=== PATIENT | male | born 1995 | race Caucasian/White ===

== ENCOUNTER 2021-12-12 17:25 | Emergency (ER) | payer SELFPAY ==
[~2021-12-12] VITALS: Ht 170 cm; Wt 74.0 kg
--- NOTE | 2021-12-12 17:43 | ED General ---
General Chief Complaint: General Problems/Pain Stated Complaint: TINGLING ALL OVER BODY Source of Information: Patient History of Present Illness Date Seen by Provider: Dec 12, 2021 Time Seen by Provider: 17:39 Initial Comments 26-year-old male presenting with complaints of feeling like he was tingling all over his body. He states he woke up feeling that way in her head progress throughout the day. He has been under extra stress in the last few weeks as he has been undergoing a custody cabrera with his ex over their son. He also has not been sleeping more than a hour to a few hours each night. He only eats about once a day and has had little to no appetite. He thought that he was tired today so he did drink 5 cups of coffee with caffeine. He started feeling like his face was going numb at work and had to leave early. They had gone to [place] to be seen but he states that he waited for 40 minutes and they had not called him to the room so he left and they drove here. He has had some increased nasal congestion and nosebleeds but thought that it was related to his work. He works with paper and gets dried out. He denies having any fever, chills, change in vision, chest pain, nausea, vomiting, pain with urination, diarrhea. He did have a coworker that was positive for Covid but was not in close contact with that individual other than they walk by where he works. Timing/Duration: 12-24 Hours Severity: Moderate Associated Systoms: No Chest Pain, No Cough, No Diaphoresis, No Fever/Chills, No Headaches; Loss of Appetite, Malaise; No Nausea/Vomiting, No Rash, No Seizure, No Shortness of Air, No Syncope, No Weakness Allergies and Home Medications Allergies Coded Allergies: No Known Drug Allergies (Unverified , 12/12/21) Patient Home Medication List Home Medication List Reviewed: Yes Review of Systems Review of Systems Constitutional: No chills, No fever; malaise EENTM: epistaxis, nose congestion; No blurred vision Respiratory: No cough, No short of breath Cardiovascular: No chest pain Gastrointestinal: No nausea, No vomiting Genitourinary: No dysuria Musculoskeletal: No muscle pain Skin: No rash Psychiatric/Neurological: Emotional Problems (stress with custody cabrera with his ex, insomnia); Denies Headache Hematologic/Lymphatic: Denies Anemia, Denies Blood Clots Past [id number]-[id number] Hx Patient Social History Substance use?: Yes Substance type: Marijuana Alcohol Use?: Yes Past Medical History Surgeries: No Respiratory: No Cardiac: Yes Hypertension Neurological: No Genitourinary: No Gastrointestinal: No Musculoskeletal: No Endocrine: No HEENT: No Psychosocial: Yes Sleep Difficulties Physical Exam Vital Signs Vital Signs - First Documented 12/12/21 17:41 Temp 36.7 Pulse 94 Resp 16 B/P (MAP) 146/93 (110) Pulse Ox 98 O2 Delivery Room Air Capillary Refill : Height, Weight, BMI Height: '" Weight: lbs. oz. kg; BMI Method: General Appearance: No Apparent Distress, WD/WN, Anxious HEENT: PERRL/EOMI, Pharynx Normal Neck: Full Range of Motion, Normal Inspection, Non Tender, Supple Respiratory: Chest Non Tender, Lungs Clear, Normal Breath Sounds, No Accessory Muscle Use, No Respiratory Distress Cardiovascular: Regular Rate, Rhythm, Normal Peripheral Pulses Gastrointestinal: Normal Bowel Sounds, No Pulsatile Mass, Non Tender, Soft Rectal: Deferred Extremity: Normal Capillary Refill, Normal Inspection, No Pedal Edema Neurologic/Psychiatric: Alert, Oriented x3, low voltage technician II-XII Norm as Tested Skin: Normal Color, Warm/Dry Progress/Results/Core Measures Suspected Sepsis SIRS Temperature: Pulse: Respiratory Rate: Laboratory Tests 12/12/21 18:20: White Blood Count 6.3 Blood Pressure / Mean: Laboratory Tests 12/12/21 18:20: Creatinine 0.89, Platelet Count 215, Total Bilirubin 0.8 Results/Orders Lab Results Laboratory Tests Test 12/12/21 17:34 12/12/21 17:59 12/12/21 18:20 Range/Units Urine Color YELLOW Urine Clarity CLEAR Urine pH 6.0 5-9 Urine Specific [place] <=1.005 1.016-1.022 Urine Protein NEGATIVE NEGATIVE Urine Glucose (UA) NEGATIVE NEGATIVE Urine Ketones 2+ H NEGATIVE Urine Nitrite NEGATIVE NEGATIVE Urine Bilirubin NEGATIVE NEGATIVE Urine Urobilinogen 0.2 < = 1.0 MG/DL Urine Leukocyte Esterase NEGATIVE NEGATIVE Urine RBC (Auto) NEGATIVE NEGATIVE Urine RBC NONE /HPF Urine WBC 0-2 /HPF Urine Squamous Epithelial Cells RARE /HPF Urine Crystals NONE /LPF Urine Bacteria NEGATIVE /HPF Urine Casts NONE /LPF Urine Mucus NEGATIVE /LPF Urine Culture Indicated NO Urine Opiates Screen NEGATIVE NEGATIVE Urine Oxycodone Screen NEGATIVE NEGATIVE Urine Methadone Screen NEGATIVE NEGATIVE Urine Propoxyphene Screen NEGATIVE NEGATIVE Urine Barbiturates Screen NEGATIVE NEGATIVE Ur Tricyclic Antidepressants Screen NEGATIVE NEGATIVE Urine Phencyclidine Screen NEGATIVE NEGATIVE Urine Amphetamines Screen NEGATIVE NEGATIVE Urine Methamphetamines Screen NEGATIVE NEGATIVE Urine Benzodiazepines Screen NEGATIVE NEGATIVE Urine Cocaine Screen NEGATIVE NEGATIVE Urine Cannabinoids Screen POSITIVE H NEGATIVE Glucometer 78 70-110 MG/DL White Blood Count 6.3 4.3-11.0 10^3/uL Red Blood Count 5.23 4.30-5.52 10^6/uL Hemoglobin 15.3 13.3-17.7 g/dL Hematocrit 44 40-54 % Mean Corpuscular Volume 84 80-99 fL Mean Corpuscular Hemoglobin 29 25-34 pg Mean Corpuscular Hemoglobin Concent 35 32-36 g/dL Red Cell Distribution Width 12.0 10.0-14.5 % Platelet Count 215 130-400 10^3/uL Mean Platelet Volume 10.1 9.0-12.2 fL Immature Granulocyte % (Auto) 0 % Neutrophils (%) (Auto) 60 42-75 % Lymphocytes (%) (Auto) 26 12-44 % Monocytes (%) (Auto) 13 H 0-12 % Eosinophils (%) (Auto) 0 0-10 % Basophils (%) (Auto) 1 0-10 % Neutrophils # (Auto) 3.8 1.8-7.8 10^3/uL Lymphocytes # (Auto) 1.7 1.0-4.0 10^3/uL Monocytes # (Auto) 0.8 0.0-1.0 10^3/uL Eosinophils # (Auto) 0.0 0.0-0.3 10^3/uL Basophils # (Auto) 0.0 0.0-0.1 10^3/uL Immature Granulocyte # (Auto) 0.0 0.0-0.1 10^3/uL Sodium Level 137 135-145 MMOL/L Potassium Level 3.7 3.6-5.0 MMOL/L Chloride Level 99 98-107 MMOL/L Carbon Dioxide Level 20 L 21-32 MMOL/L Anion Gap 18 H 5-14 MMOL/L Blood Urea Nitrogen 13 7-18 MG/DL Creatinine 0.89 0.60-1.30 MG/DL Estimat Glomerular Filtration Rate 123 BUN/Creatinine Ratio 15 Glucose Level 83 70-105 MG/DL Calcium Level 9.4 8.5-10.1 MG/DL Corrected Calcium 8.5-10.1 MG/DL Magnesium Level 2.2 1.6-2.4 MG/DL Total Bilirubin 0.8 0.1-1.0 MG/DL Aspartate Amino Transf (AST/SGOT) 22 5-34 U/L Alanine Aminotransferase (ALT/SGPT) 16 0-55 U/L Alkaline Phosphatase 63 40-136 U/L Total Protein 7.7 6.4-8.2 GM/DL Albumin 4.8 H 3.2-4.5 GM/DL Serum Alcohol < 10 <10 MG/DL My Orders Orders - SASHA MOORE MD Ua Culture If Indicated (12/12/21 17:39) Drug Screen Stat (Urine) (12/12/21 17:39) Accucheck Stat ONCE (12/12/21 17:41) Cbc With Automated Diff (12/12/21 18:09) Comprehensive Metabolic Panel (12/12/21 18:09) Alcohol (12/12/21 18:09) Ed Iv/Invasive Line Start (12/12/21 18:09) Magnesium (12/12/21 18:09) Covid 19 Inhouse Test (12/12/21 18:09) Isolation Central Supply Req (12/12/21 18:09) Vital Signs/I&O 12/12/21 12/12/21 17:41 19:07 Temp 36.7 Pulse 94 77 Resp 16 14 B/P (MAP) 146/93 (110) 124/79 Pulse Ox 98 98 O2 Delivery Room Air Room Air Capillary Refill : Progress Note #1: Progress Note Counseled patient that we could do general testing to see if there was any electrolyte imbalance or if he was hypoglycemic with his testing. If he has signs of anemia or infection that might be contributing to his symptoms. Otherwise this may all be related back to combination of stress, lack of sleep, increased caffeine intake, hypoglycemia. Since he had no focal consistent deficit and was just having some tingling that was all over and not to a single dermatome will defer any radiology or CT scanning for now. Progress Note #2: Progress Note Urinalysis did not show signs of infection. He did have some ketones in his urine consistent with not eating and drinking well. His urine drug screen showed marijuana. His chemistry and blood count did not show acute significant abnormalities. He had negative alcohol level. The Covid swab was sent but will not be back tonight. Counseled patient that with not having fever or other symptoms this was likely more related back to stress and anxiety as well as lack of sleep and lack of regular meals and hydration. Encouraged to try and take better care of himself and to establish care with a primary care provider for further work-up and look at vitamin levels and thyroid and other issues that might be contributing to his symptoms. If he worsens or is not improving then he would need to be reevaluated. Departure Impression Primary Impression: Tingling of skin Additional Impressions: Tingling sensation Stress at home Insomnia Qualified Codes: G47.00 - Insomnia, unspecified Disposition: HOME, SELF-CARE Condition: Stable Departure-Patient Inst. Decision time for Depature: 18:59 Referrals: NO,LOCAL PHYSICIAN (PCP) Primary Care Physician [facility] Call [phone] to get established for care and follow up Patient Instructions: Stress, Tips for Getting Better Sleep Add. Discharge Instructions: Try eating small more frequent meals. Stay better hydrated and decrease depending on Caffeine to try and keep yourself awake. Establish care and follow up with primary care provider for continued concerns and further work up of your symptoms Try to get better sleep and more consistent sleep All discharge instructions reviewed with patient and/or family. Voiced understanding. Work/School Note: Work Release Form Date Seen in the Emergency Department: Dec 12, 2021 Return to Work: Dec 13, 2021 Restrictions: No Restrictions SASHA MOORE MD Dec 12, 2021 17:43
[2021-12-12 17:54] LABS: BILIRUBIN,URINE NEGATIVE (NEGATIVE); CLARITY,URINE CLEAR; COLOR,URINE YELLOW; GLUCOSE, URINE (UA) NEGATIVE (NEGATIVE); KETONES,URINE 2+ (NEGATIVE); LEUKOCYTE ESTERASE ,URINE NEGATIVE (NEGATIVE); NITRITE,URINE NEGATIVE (NEGATIVE); PROTEIN,URINE NEGATIVE (NEGATIVE)
[2021-12-12 17:59] LABS: BACTERIA,URINE NEGATIVE /HPF; SQUAMOUS EPITHELIAL CELL,UR RARE /HPF; WBC,URINE 0-2 /HPF
[2021-12-12 18:06] LABS: AMPHETAMINE SCREEN, URINE NEGATIVE (NEGATIVE); BARBITURATE SCREEN URINE NEGATIVE (NEGATIVE); BENZODIAZEPINES SCREEN URINE NEGATIVE (NEGATIVE); CANNABINOID SCREEN, URINE POSITIVE (NEGATIVE); COCAINE SCREEN URINE NEGATIVE (NEGATIVE); METHADONE STAT NEGATIVE (NEGATIVE); METHAMPHETAMINE SCREEN URINE S NEGATIVE (NEGATIVE); OPIATE SCREEN URINE NEGATIVE (NEGATIVE); OXYCODONE STAT NEGATIVE (NEGATIVE); PROPOXYPHENE STAT NEGATIVE (NEGATIVE); TRICYCLIC ANTIDEPRESSANTS SCRE NEGATIVE (NEGATIVE)
[2021-12-12 18:29] LABS: BASOPHILS % (AUTO) 1 % (0-10); EOSINOPHILS % (AUTO) 0 % (0-10); HEMATOCRIT 44 % (40-54); HEMOGLOBIN 15.3 g/dL (13.3-17.7); LYMPHOCYTES # (AUTO) 1.7 10^3/uL (1.0-4.0); LYMPHOCYTES % (AUTO) 26 % (12-44); MEAN CORPUSCULAR HEMOGLOBIN 29 pg (25-34); MEAN CORPUSCULAR HGB CONC 35 g/dL (32-36); MEAN CORPUSCULAR VOLUME 84 fL (80-99); MEAN PLATELET VOLUME 10.1 fL (9.0-12.2); MONOCYTES # (AUTO) 0.8 10^3/uL (0.0-1.0); MONOCYTES % (AUTO) 13 % (0-12); NEUTROPHILS # (AUTO) 3.8 10^3/uL (1.8-7.8); NEUTROPHILS % (AUTO) 60 % (42-75); PLATELET COUNT 215 10^3/uL (130-400); WHITE BLOOD COUNT 6.3 10^3/uL (4.3-11.0)
[2021-12-12 18:54] LABS: ALANINE AMINOTRANSFERASE 16 U/L (0-55); ALKALINE PHOSPHATASE 63 U/L (40-136); BILIRUBIN,TOTAL 0.8 MG/DL (0.1-1.0); BUN/CREATININE RATIO 15; CALCIUM 9.4 MG/DL (8.5-10.1); CARBON DIOXIDE 20 MMOL/L (21-32); CHLORIDE 99 MMOL/L (98-107); CREATININE SERUM 0.89 MG/DL (0.60-1.30); GFR ESTIMATED 123; GLUCOSE 83 MG/DL (70-105); POTASSIUM 3.7 MMOL/L (3.6-5.0); SODIUM 137 MMOL/L (135-145); TOTAL PROTEIN 7.7 GM/DL (6.4-8.2)
[2021-12-12 18:55] LABS: ALBUMIN 4.8 GM/DL (3.2-4.5)
[2021-12-12 19:07] VITALS: BP 124/79
== END 2021-12-12 19:23 | disposition home or self-care (01) ==
LOC: ER FS 17:27
DX: R20.2 Paresthesia of skin (principal); F43.9 Reaction to severe stress, unspecified; G47.00 Insomnia, unspecified; I10 Essential (primary) hypertension
CPT/HCPCS: 36415; 80053; 80306; 81000; 82947; 83735; 85025; 87636; G0480; 80320; 87635